=== PATIENT | male | born 1945 | race Caucasian/White ===

== ENCOUNTER 2018-09-18 12:16 | Emergency (ER) | payer MEDICARE, BC ==
--- NOTE | 2018-09-18 13:50 | EDM.PDOC ---
ED HPI GENERAL MEDICAL PROBLEM - General Chief Complaint: General Stated Complaint: LIGHT HEADED Time Seen by Provider: 09/18/18 12:20 Source of Information: Reports: Patient History Limitations: Reports: No Limitations - History of Present Illness INITIAL COMMENTS - FREE TEXT/NARRATIVE: According to patient , he claims he has been having heart burn and reflux symptoms on and off for past 2 hrs now and felt a little dizzy, hence came into emergency room. Pt has had GERD and is on omeprazole. But he claims he felt dizzy. No chest pain , no chest tightness. No jaw pain or neck pain. HE does have CHF and felt a little short of breath when it all started 2 hrs ago. No chest pressure. He has been doing his regular chores, and his dizziness has not got worse. No headache, no blurry vision. Pt is from [place], [place] and wants to be checked. Onset Date: 09/18/18 Onset Time: 10:00 Severity: Mild Improves with: Reports: None Worsens with: Reports: None Associated Symptoms: Reports: Shortness of Breath. Denies: Confusion, Chest Pain, Cough, Diaphoresis, Fever/Chills, Headaches, Nausea/Vomiting, Rash, Seizure, Syncope, Weakness - Related Data Allergies Allergy/AdvReac Type Severity Reaction Status Date / Time Sulfa (Sulfonamide Allergy Rash Verified 09/18/18 12:49 Antibiotics) Home Meds: Home Meds Aspirin 81 mg PO DAILY 09/18/18 [History] Carvedilol 25 mg PO BID 09/18/18 [History] Diltiazem HCl [Cardizem Cd] 240 mg PO DAILY 09/18/18 [History] Fenofibrate 150 mg PO DAILY 09/18/18 [History] Furosemide [Lasix] 40 mg PO DAILY 09/18/18 [History] Insulin Aspart [NovoLOG] 100 units SQ DAILY 09/18/18 [History] Lisinopril 40 mg PO DAILY 09/18/18 [History] amLODIPine Besylate [Norvasc] 2.5 mg PO DAILY 09/18/18 [History] atorvaSTATin [Lipitor] 10 mg PO BEDTIME 09/18/18 [History] ED ROS GENERAL - Review of Systems Review Of Systems: See Below Constitutional: Denies: Fever, Chills, Malaise, Weakness HEENT: Denies: Ear Pain, Rhinitis, Throat Pain Respiratory: Reports: Shortness of Breath. Denies: Wheezing, Pleuritic Chest Pain, Cough, Sputum Cardiovascular: Denies: Chest Pain, Lightheadedness, Syncope GI/Abdominal: Denies: Abdominal Pain, Constipation, Diarrhea, Nausea, Vomiting : Denies: Discharge, Dysuria Musculoskeletal: Denies: Joint Pain, Joint Swelling Skin: Denies: Bruising, Pruritis, Rash Neurological: Reports: Dizziness. Denies: Confusion, Headache, Numbness, Tingling ED EXAM, GENERAL - Physical Exam Exam: See Below Exam Limited By: No Limitations General Appearance: Alert, WD/WN, No Apparent Distress, Obese Eye Exam: Bilateral Eye: EOMI, PERRL Ears: Normal External Exam, Normal Canal, Hearing Grossly Normal, Normal TMs Ear Exam: Bilateral Ear: Auricle Normal, Canal Normal, TM normal Nose: Normal Inspection, Normal Mucosa, No Blood Throat/Mouth: Normal Inspection, Normal Lips, Normal Teeth, Normal Gums, Normal Oropharynx, Normal Voice, No Airway Compromise Head: Atraumatic, Normocephalic Neck: Normal Inspection, Supple, Non-Tender, Full Range of Motion Respiratory/Chest: No Respiratory Distress, Lungs Clear, Normal Breath Sounds, No Accessory Muscle Use, Chest Non-Tender Cardiovascular: Normal Peripheral Pulses, Regular Rate, Rhythm, No Edema, No Gallop, No JVD, No Murmur, No Rub GI/Abdominal: Normal Bowel Sounds, Soft, Non-Tender, No Organomegaly, No Distention, No Abnormal Bruit, No Mass Extremities: Normal Inspection, Normal Range of Motion, Non-Tender, Normal Capillary Refill, Pedal Edema (pitting edema upto knee B/l) Skin Exam: Warm, Intact EKG INTERPRETATION EKG Date: 09/18/18 Rhythm: NSR EKG Interpretation Comments: chronic LBBB pattern Course - Vital Signs Text/Narrative:: Pt is asymptomatic in the emergency room. He did come into emergency room walking. For the past 2 hrs he has been doing all his routine chores, and his heart burn or his dizziness got worse. His blood pressure is slightly elevated at 180/67mmhg. No c/o chest pain or pressure. His EKG is in sinus rhythm. His CBC , CMP are normal His troponin is negative. His chest X-ray is normal. HE has remained asymptomatic in the emergency room. Pt reassure that he does not have heart attack, his heart burn is probably his chronic GERD. Advised to continue omeprazole. Advised to continue home meds. IF he does develop chest pain/ pressure, shortness of breath with exertion, jaw pain or neck asso with SOB, should return to emergency room. Otherwise followup with his primary care provider back home in 1 week. Last Recorded V/S: Last Vital Signs Temp 98.8 F 09/18/18 13:00 Pulse 66 09/18/18 13:00 Resp 20 09/18/18 13:00 BP 176/78 H 09/18/18 13:00 Pulse Ox 97 09/18/18 13:00 - Orders/Labs/Meds Orders: Active Orders 24 hr Category Date Time Status EKG Documentation Completion [RC] ASDIRECTED Care 09/18/18 12:22 Active Chest 1V Frontal [CR] Stat Exams 09/18/18 12:22 Taken Labs: Laboratory Tests 09/18/18 09/18/18 09/18/18 Range/Units 12:45 12:45 12:45 WBC 9.2 (4.0-11.0) K/uL RBC 5.09 (4.50-6.50) M/uL Hgb 13.9 (13.0-18.0) g/dL Hct 44.1 (40.0-54.0) % MCV 87 (76-96) fL MCH 27.3 (27.0-32.0) pg MCHC 31.5 (31.0-35.0) g/dL RDW 16.6 H (11.0-16.0) % Plt Count 228 (150-400) K/uL MPV 9.7 (6.0-10.0) fL Neut % (Auto) 66.2 (45.0-70.0) % Lymph % (Auto) 24.6 (20.0-40.0) % Crisp % (Auto) 6.7 (3.0-10.0) % Eos % (Auto) 2.1 (1.0-5.0) % Baso % (Auto) 0.4 (0.0-0.5) % Neut # (Auto) 6.08 (2.00-7.50) K/uL Lymph # (Auto) 2.26 (1.50-4.00) K/uL Crisp # (Auto) 0.62 (0.20-0.80) K/uL Eos # (Auto) 0.19 (0.04-0.40) K/uL Baso # (Auto) 0.04 (0.02-0.10) K/uL PT 9.9 (9.0-11.5) sec INR 1.0 (1.0-3.5) APTT (24.4-33.2) SECONDS Sodium 143 (136-145) mmol/L Potassium 4.2 (3.5-5.1) mmol/L Chloride 104 (98-107) mmol/L Carbon Dioxide 29.8 (21.0-32.0) mmol/L Anion Gap 13.4 (5.0-15.0) mmol/L BUN 24 (8-26) mg/dL Creatinine 1.24 (0.70-1.30) mg/dL Est Cr Clr Drug Dosing TNP Estimated GFR (MDRD) 57 L (>60) MLS/MIN BUN/Creatinine Ratio 19.4 (6-25) Glucose 109 H (74-100) mg/dL Calcium 8.7 (8.5-10.1) mg/dL Total Bilirubin 0.3 (0.0-1.0) mg/dL AST 21 (15-37) U/L ALT 31 (12-78) U/L Alkaline Phosphatase 45 L (46-116) U/L Troponin I 0.021 (0.000-0.060) ng/mL Total Protein 7.8 (6.4-8.2) g/dL Albumin 3.3 L (3.4-5.0) g/dL Globulin 4.5 H (2.2-4.2) g/dL Albumin/Globulin Ratio 0.7 L (0.8-2.0) 09/18/18 Range/Units 12:45 WBC (4.0-11.0) K/uL RBC (4.50-6.50) M/uL Hgb (13.0-18.0) g/dL Hct (40.0-54.0) % MCV (76-96) fL MCH (27.0-32.0) pg MCHC (31.0-35.0) g/dL RDW (11.0-16.0) % Plt Count (150-400) K/uL MPV (6.0-10.0) fL Neut % (Auto) (45.0-70.0) % Lymph % (Auto) (20.0-40.0) % Crisp % (Auto) (3.0-10.0) % Eos % (Auto) (1.0-5.0) % Baso % (Auto) (0.0-0.5) % Neut # (Auto) (2.00-7.50) K/uL Lymph # (Auto) (1.50-4.00) K/uL Crisp # (Auto) (0.20-0.80) K/uL Eos # (Auto) (0.04-0.40) K/uL Baso # (Auto) (0.02-0.10) K/uL PT (9.0-11.5) sec INR (1.0-3.5) APTT 27.0 (24.4-33.2) SECONDS Sodium (136-145) mmol/L Potassium (3.5-5.1) mmol/L Chloride (98-107) mmol/L Carbon Dioxide (21.0-32.0) mmol/L Anion Gap (5.0-15.0) mmol/L BUN (8-26) mg/dL Creatinine (0.70-1.30) mg/dL Est Cr Clr Drug Dosing Estimated GFR (MDRD) (>60) MLS/MIN BUN/Creatinine Ratio (6-25) Glucose (74-100) mg/dL Calcium (8.5-10.1) mg/dL Total Bilirubin (0.0-1.0) mg/dL AST (15-37) U/L ALT (12-78) U/L Alkaline Phosphatase (46-116) U/L Troponin I (0.000-0.060) ng/mL Total Protein (6.4-8.2) g/dL Albumin (3.4-5.0) g/dL Globulin (2.2-4.2) g/dL Albumin/Globulin Ratio (0.8-2.0) Departure - Departure Time of Disposition: 13:45 Disposition: Home, Self-Care 01 Condition: Fair Clinical Impression: GERD (gastroesophageal reflux disease) - Discharge Information *PRESCRIPTION DRUG MONITORING PROGRAM REVIEWED*: Not Applicable *COPY OF PRESCRIPTION DRUG MONITORING REPORT IN PATIENT CHRISTOPHER: Not Applicable Instructions: Low-Sodium Eating Plan, Heart Failure, [id number] Referrals: PCP,None [Primary Care Provider] - Forms: ED Department Discharge Additional Instructions: Fluid restriction and follow up with primary MD. Low sodium diet, see print out. - Problem List & Annotations (1) GERD (gastroesophageal reflux disease) SNOMED Code(s): 702169770 Code(s): K21.9 - GASTRO-ESOPHAGEAL REFLUX DISEASE WITHOUT ESOPHAGITIS Status: Acute - Problem List Review Problem List Initiated/Reviewed/Updated: Yes - My Orders Last 24 Hours: My Active Orders 09/18/18 12:22 EKG Documentation Completion [RC] ASDIRECTED Chest 1V Frontal [CR] Stat - Assessment/Plan Last 24 Hours: My Active Orders 09/18/18 12:22 EKG Documentation Completion [RC] ASDIRECTED Chest 1V Frontal [CR] Stat Assessment:: GERD Plan: Pt is asymptomatic in the emergency room. He did come into emergency room walking. For the past 2 hrs he has been doing all his routine chores, and his heart burn or his dizziness got worse. His blood pressure is slightly elevated at 180/67mmhg. No c/o chest pain or pressure. His EKG is in sinus rhythm. His CBC , CMP are normal His troponin is negative. His chest X-ray is normal. HE has remained asymptomatic in the emergency room. Pt reassure that he does not have heart attack, his heart burn is probably his chronic GERD. Advised to continue omeprazole. Advised to continue home meds. IF he does develop chest pain/ pressure, shortness of breath with exertion, jaw pain or neck asso with SOB, should return to emergency room. Otherwise followup with his primary care provider back home in 1 week.
--- NOTE | 2018-09-18 19:16 | CR ---
DATE OF SERVICE: 09/18/18 CLINICAL DATA: dizziness AP PORTABLE CHEST: No priors. The patient has taken a very poor inspiration. The heart is enlarged. The pulmonary vasculature is prominent with cephalization of flow suggesting pulmonary venous congestion. It may be accentuated by the poor inspiratory effort. Lungs appear clear. No pneumothorax. No pleural effusions. [id number] [facility]
== END 2018-09-18 13:47 | disposition home or self-care (01) ==
LOC: LB.ED 12:16
DX: K21.9 Gastro-esophageal reflux disease without esophagitis (principal); I50.9 Heart failure, unspecified; Z79.4 Long term (current) use of insulin; Z79.899 Other long term (current) drug therapy; Z88.2 Allergy status to sulfonamides; Z79.82 Long term (current) use of aspirin
CPT/HCPCS: 36415; 71045; 80053; 84484; 85025; 85610; 85730; 93005; 99284-25